=== PATIENT | male | born 1995 | race Caucasian/White ===

== ENCOUNTER → 2017-07-09 | Outpatient (CLI) | payer OTHER | LOC: FIMAGING 11:12 | PROVIDERS: ATTEND Family Medicine | DX: R07.81 Pleurodynia (principal) ==

== ENCOUNTER 2017-08-09 10:11 | Observation (INO) | payer OTHER ==
--- NOTE | 2017-08-09 10:18 | EDPHY ---
H & P Stated Complaint: n/v constipation generalized abd pain Time Seen by Provider: 08/09/17 10:17 HPI/ROS: HPI: This is a 22-year-old male who presents with Chief Complaint: n/v constipation generalized abd pain Location: Periumbilical Quality: Sharp pain Duration: Since 11:00 p.m. Signs and Symptoms: no fever, + nausea, + vomiting, no hematemesis, no blood in stool, no abdominal bloating, no diarrhea, no back pain, no urinary symptoms, no testicular/groin pain, no indigestion, no chest pain, no shortness of breath Timing: Acute, intermittent episodes Severity:10/28 Context: Patient is generally healthy, presents with complaints of sudden onset of nausea and vomiting up to 8 times starting around 11:00 p.m. Yesterday. He also complains of periumbilical abdominal pain that sharp, constant, nonradiating in nature. Last bowel movement was 2 days ago. Reports people at work have had the"stomach flu." Patient did smoke marijuana yesterday. Has not drink alcohol in 2-3 days. Patient ate [employer] for launch around noon yesterday; nothing since. Not able to keep any liquids or food down. Modifying Factors: None Comment: ROS: see HPI Constitutional: No fever, no chills, no weight loss Eyes: No blurred vision Respiratory: No shortness of breath, no cough Cardiovascular: No chest pain, no palpitations Gastrointestinal: + nausea, + vomiting, no diarrhea, no hematemesis, no blood in stool Genitourinary: No dysuria, no blood in urine Extremities: No myalgias, no edema Neurologic: No weakness, no numbness Skin: No rashes, no petechiae Hematologic: No bruising, no bleeding MEDICAL/SURGICAL/SOCIAL HISTORY: Medical history: Generally healthy. Does not take any regular medications. Surgical history: Denies Social history: Local [employer] student. Family history noncontributory. CONSTITUTIONAL: Well-developed, well-nourished, well-appearing young adult white male, awake and alert, no obvious distress HEENT: Atraumatic and normocephalic, PERRL, EOMI. Nares patent; no rhinorrhea; no nasal mucosal edema. Tympanic membranes clear. Oropharynx clear, no exudate and moist pink mucosa. Airway patent. No lymphadenopathy. No meningismus. Cardiovascular: Normal S1/S2, regular rate, regular rhythm, without murmur rub or gallop. PULMONARY/CHEST: Symmetrical and nontender. Clear to auscultation bilaterally. Good air movement. No accessory muscle usage. ABDOMEN: Soft, nondistended, mild periumbilical and right lower quadrant tenderness, no rebound, no guarding, no peritoneal signs, no masses or organomegaly. No CVAT. Negative House sign. EXTREMITIES: 2/2 pulses, strength 5/5, no deformities, no clubbing, no cyanosis or edema. NEUROLOGICAL: no focal neuro deficits. GCS 15. SKIN: Warm and dry, no erythema. no rash. Good capillary refill. Source: Patient Exam Limitations: No limitations - Personal History Current Tetanus/Diphtheria Vaccine: Yes - Medical/Surgical History Hx Asthma: No Hx Chronic Respiratory Disease: No Hx Diabetes: No Hx Cardiac Disease: No Hx Renal Disease: No Hx Cirrhosis: No Hx Alcoholism: No Hx HIV/AIDS: No Hx Splenectomy or Spleen Trauma: No Other PMH: denies - Social History Smoking Status: Never smoked Constitutional: Initial Vital Signs Temperature (C) 37.7 C 08/09/17 10:13 Heart Rate 54 L 08/09/17 10:13 Respiratory Rate 18 08/09/17 10:13 Blood Pressure 132/80 H 08/09/17 10:13 O2 Sat (%) 95 08/09/17 10:13 O2 Delivery Mode Room Air Allergies/Adverse Reactions: No Known Allergies Allergy (Unverified 08/09/17 10:13) Home Medications: Medication Instructions Recorded NK [No Known Home Meds] 08/09/17 Medical Decision Making - Diagnostics Imaging Results: Imaging Impressions Abdomen CT 08/09/17 10:23 Impression: Early appendicitis. Results called and discussed with Oneida Paul, at 08/09/2017 11:58 General information for patients regarding this examination can be found at [email or web address]. If you have questions or comments about this report, please contact me at [phone] (hospital) or [phone] (cell). ED Course/Re-evaluation: Vital signs reviewed and stable upon arrival. No systemic signs. Labs, IV fluids, IV medication, CT abdomen and pelvis scan ordered to evaluate for appendicitis. 1025: Given 1 L normal saline, IV promethazine 12.5 mg 1049: Labs reviewed; high normal white blood cell count with left shift, No signs of anemia/STEPHEN/elevated LFTs/electrolyte imbalance/pancreatitis. 1150: Called by radiologist, Dr. Hoyt, who reports early appendicitis. Appendix is measuring 13 mm within appendicolith Ordered IV ceftriaxone, IV Flagyl, IV morphine 4 mg in started normal saline at 100 cc an hour. NPO status. ED decision to consult General surgery. Spoke with Dr. Andujar who advised that he is on his way to the emergency room for consult and to take patient to the operating room for appendectomy. Spoke with patient regarding appendicitis diagnosis. Answered all of his questions at bedside. Pain is currently controlled at this time. This patient was seen under the supervision of my secondary supervising physician. I evaluated care for this patient independently. Discussed this patient with Dr. De Jesus who did not see the patient. Differential Diagnosis: Abdominal pain including but not limited to appendicitis, cholecystitis, gastritis and urinary tract infection. - Data Points Laboratory Results: Laboratory Results 08/09/17 10:25 08/09/17 10:25 08/09/17 08/09/17 10:25 10:25 WBC 11.83 10^3/uL H 10^3/uL (3.80-9.50) RBC 5.11 10^6/uL 10^6/uL (4.40-6.38) Hgb 15.5 g/dL g/dL (13.7-17.5) Hct 45.1 % % (40.0-51.0) MCV 88.3 fL fL (81.5-99.8) MCH 30.3 pg pg (27.9-34.1) MCHC 34.4 g/dL g/dL (32.4-36.7) RDW 12.7 % % (11.5-15.2) Plt Count 195 10^3/uL 10^3/uL (150-400) MPV 10.6 fL fL (8.7-11.7) Neut % (Auto) 87.1 % H % (39.3-74.2) Lymph % (Auto) 6.3 % L % (15.0-45.0) Evangeline % (Auto) 6.0 % % (4.5-13.0) Eos % (Auto) 0.1 % L % (0.6-7.6) Baso % (Auto) 0.2 % L % (0.3-1.7) Nucleat RBC Rel Count 0.0 % % (0.0-0.2) Absolute Neuts (auto) 10.31 10^3/uL H 10^3/uL (1.70-6.50) Absolute Lymphs (auto) 0.74 10^3/uL L 10^3/uL (1.00-3.00) Absolute Monos (auto) 0.71 10^3/uL 10^3/uL (0.30-0.80) Absolute Eos (auto) 0.01 10^3/uL L 10^3/uL (0.03-0.40) Absolute Basos (auto) 0.02 10^3/uL 10^3/uL (0.02-0.10) Absolute Nucleated RBC 0.00 10^3/uL 10^3/uL (0-0.01) Immature Gran % 0.3 % % (0.0-1.1) Immature Gran # 0.04 10^3/uL 10^3/uL (0.00-0.10) Sodium 142 mEq/L mEq/L (135-145) Potassium 4.4 mEq/L mEq/L (3.5-5.2) Chloride 100 mEq/L mEq/L (97-110) Carbon Dioxide 28 mEq/l mEq/l (22-31) Anion Gap 14 mEq/L mEq/L (8-16) BUN 16 mg/dL mg/dL (7-23) Creatinine 0.9 mg/dL mg/dL (0.7-1.3) Estimated GFR > 60 Glucose 147 mg/dL H mg/dL (70-100) Calcium 10.0 mg/dL mg/dL (8.5-10.4) Total Bilirubin 0.9 mg/dL mg/dL (0.1-1.4) Conjugated Bilirubin 0.4 mg/dL mg/dL (0.0-0.5) Unconjugated Bilirubin 0.5 mg/dL mg/dL (0.0-1.1) AST 41 IU/L IU/L (17-59) ALT 54 IU/L IU/L (21-72) Alkaline Phosphatase 70 IU/L IU/L (38-126) Total Protein 7.8 g/dL g/dL (6.3-8.2) Albumin 4.9 g/dL g/dL (3.5-5.0) Lipase 77 IU/L IU/L (23-300) Medications Given: Metronidazole/Sodium Chloride (Flagyl 500 Mg (Premix)) 100 mls @ 100 mls/hr IV EDNOW ONE PRN Reason: Protocol Stop: 08/09/17 13:01 Last Admin: 08/09/17 12:27 Dose: 100 mls Ondansetron HCl (Zofran) 4 mg IVP ONCE ONE Stop: 08/09/17 12:39 Last Admin: 08/09/17 12:39 Dose: 4 mg Discontinued Medications Sodium Chloride (Ns) 1,000 mls @ 0 mls/hr IV EDNOW ONE; Wide Open PRN Reason: Protocol Stop: 08/09/17 10:24 Last Admin: 08/09/17 10:30 Dose: 1,000 mls Sodium Chloride (Ns) 1,000 mls @ 0 mls/hr IV ONCE ONE; Wide Open PRN Reason: Protocol Stop: 08/09/17 12:03 Last Admin: 08/09/17 12:31 Dose: 1,000 mls Morphine Sulfate (Morphine) 4 mg IVP EDNOW ONE Stop: 08/09/17 12:02 Last Admin: 08/09/17 12:30 Dose: 4 mg Promethazine HCl (Phenergan) 12.5 mg IVP EDNOW ONE Stop: 08/09/17 10:24 Last Admin: 08/09/17 10:30 Dose: 12.5 mg Departure - Departure Disposition: [facility] Clinical Impression: Appendicitis, acute, with generalized peritonitis Condition: Fair
[2017-08-09] MEDS ORDERED: NS 1,000 ML IV ONE ×2 (10:23→12:02)
[2017-08-09] MEDS ORDERED: PROMETHAZINE HCL 25 MG/ML INJ IVP ONE (10:23)
[2017-08-09 10:32] LABS: PLATELET COUNT 195 10^3/uL (150-400)
[2017-08-09] MEDS ORDERED: IOPAMIDOL (ISOVUE-300) 100 ML BTL ONE (10:55)
[2017-08-09] MEDS ORDERED: cefTRIAXone 2 GM in STERILE WATER INJ 20 ML IV ONE (12:02)
[2017-08-09] MEDS ORDERED: ONDANSETRON 4 MG/2 ML VIAL ONE ×2 (12:33→13:31)
[2017-08-09] MEDS ORDERED: ONDANSETRON 4 MG/2 ML VIAL IVP ONE (12:38)
[2017-08-09] MEDS ORDERED: PROPOFOL 200 MG/20 ML VIAL ONE (13:30)
[2017-08-09] MEDS ORDERED: fentaNYL 100 MCG/2 ML INJ ONE (13:30)
[2017-08-09] MEDS ORDERED: KETOROLAC 30 MG/1 ML SDV ONE (13:31)
[2017-08-09] MEDS ORDERED: ROCURONIUM 100 MG/10 ML VIAL ONE (13:31)
[2017-08-09] MEDS ORDERED: LIDOCAINE 2% 5 ML SDV ONE (13:31)
[2017-08-09] MEDS ORDERED: DEXAMETHASONE 4 MG/ML VIAL ONE (13:31)
[2017-08-09] MEDS ORDERED: HEPARIN 5,000 UNIT/0.5 ML SYR ONE (13:32)
[2017-08-09] MEDS ORDERED: ceFAZolin 1 GM/5 ML SYR ONE (13:33)
[2017-08-09] MEDS ORDERED: MIDAZOLAM 2 MG/2 ML VIAL IVP ONE (13:45)
[2017-08-09] MEDS ORDERED: MIDAZOLAM 2 MG/2 ML VIAL ONE ×2 (13:45→14:34)
--- NOTE | 2017-08-09 13:47 | PDANEPAE ---
ANE History of Present Illness appy ANE Past Medical History - Cardiovascular History Hx Hypertension: No Hx Arrhythmias: No Hx Chest Pain: No Hx Coronary Artery / Peripheral Vascular Disease: No Hx CHF / Valvular Disease: No Hx Palpitations: No - Pulmonary History Hx COPD: No Hx Asthma/Reactive Airway Disease: No Hx Recent Upper Respiratory Infection: No Hx Oxygen in Use at Home: No Hx Sleep Apnea: No - Neurologic History Hx Cerebrovascular Accident: No Hx Seizures: No Hx Dementia: No - Endocrine History Hx Diabetes: No Hypothyroid: No Hyperthyroid: No - Renal History Hx Renal Disorders: No - Liver History Hx Hepatic Disorders: No - Neurological & Psychiatric Hx Hx Neurological and Psychiatric Disorders: No ANE Review of Systems Review of Systems: - Exercise capacity Exercise capacity: >=4 METS ANE Patient History - Allergies Allergies/Adverse Reactions: No Known Allergies Allergy (Unverified 08/09/17 10:13) - Home Medications Home Medications: NK [No Known Home Meds] 08/09/17 [Last Taken Unknown] - NPO status NPO Status: no food or drink >8 hours NPO Since - Liquids (Date): 08/09/17 NPO Since - Liquids (Time): 08:00 NPO Since - Solids (Date): 08/08/17 NPO Since - Solids (Time): 12:00 - Anes Hx Anes Hx: no prior problems - Smoking Hx Smoking Status: Never smoked ANE Labs/Vital Signs - Labs Result Diagrams: 08/09/17 10:25 08/09/17 10:25 - Vital Signs Blood Pressure: 142/75 Heart Rate: 45 Respiratory Rate: 18 O2 Sat (%): 95 Height: 172.72 cm Weight: 77.111 kg ANE Physical Exam - Airway Mallampati Score: Class 2 Mouth exam: normal dental/mouth exam, escudero - Pulmonary Pulmonary: no respiratory distress - Cardiovascular Cardiovascular: regular rate and rhythym - ASA Status ASA Status: I, E ANE Anesthesia Plan Anesthesia Plan: general endotracheal anesthesia
--- NOTE | 2017-08-09 13:50 | GHP ---
[f rep st] PREOP HISTORY AND PHYSICAL DATE OF ADMISSION: 08/09/2017 ADMITTING DIAGNOSIS: Acute appendicitis with mesenteric adenitis. HISTORY: The patient is a 22-year-old white male who had a steak burrito for lunch yesterday, and was not hungry for dinner. At 11 p.m. he had sudden onset of a sharp constant right lower quadrant pain, which has persisted since that time. He has vomited 10 times since the onset. He has not moved his bowels. He did not sleep last night. He is not hungry at this point. He came to the ER and a CT scan shows a distended appendix (13 mm). It is very narrow at its neck on the cecum. His white count was 11.8, with 87% neutrophils. I was asked to come see him to evaluate him for appendicitis. He had a recent upper respiratory tract infection, but has had diarrhea for 5 days in the last 2 weeks. There is no history of travel outside the country or antibiotic use in the last 6 months. He has had no prior abdominal surgery. He has no prior similar symptoms. There is no history of inflammatory bowel disease. SOCIAL HISTORY: He does not and never has smoked tobacco. He does smoke marijuana 3-4 times a day. He drinks approximately 6 pack a weekend. ALLERGIES: He has no known drug allergies. MEDICATIONS: He is not taking medications. PAST SURGICAL HISTORY: His only surgery has been ear tube placement and removal. There is no history of rheumatic fever, tuberculosis, hepatitis, transfusions. REVIEW OF SYSTEMS: He has had 2 concussions. Review of systems is otherwise quite negative. There are no limits on his activities. No history of steroid use. PHYSICAL EXAMINATION: GENERAL: He has a slight flush. He is, however, awake, alert and quite pleasant. SKULL: Normocephalic and atraumatic. VITAL SIGNS: Show blood pressure initially 132/80, temperature 37.1. Heart rate has been in the 50s. NECK: There is no cervical, supraclavicular, axillary, inguinal lymphadenopathy. Thyroid is not enlarged. Neck is otherwise unremarkable. BACK: Unremarkable. LUNGS: Clear to auscultation. CARDIAC: Shows S1, S2 to be normal, with no split of S2 without murmurs, rubs, or gallops. ABDOMEN: Slightly distended. He is tender with cough, 2 fingerbreadths below and 2 fingerbreadths lateral (right) to the umbilicus. He is tender at the level of 8/10. Bowel sounds are distinctly hypoactive. There is psoas and obturator signs are negative. To palpation, left upper quadrant is 1/10, left mid abdomen is 1, left lower quadrant is 1, epigastric region is 5, periumbilical area is 1, suprapubic area is 2, right upper quadrant is 1, right mid abdomen is 5, right lower quadrant is 8. The rest of the exam is absolutely unremarkable. Additional laboratories reveal his hematocrit is 45, his platelet count is 195. His glucose is 147. His creatinine is 0.9. His BUN is 16. We discussed the possibility of an antibiotic only approach in this case. He would like to proceed with a surgical approach. Certainly on CAT scan, there is mesenteric adenitis. He understands he may still have some tenderness after surgery. I feel he is set to proceed with surgical exploration. /[id number]/MODL MTDD
[2017-08-09] MEDS ORDERED: GLYCOPYRROLATE 0.2 MG/1 ML VIAL ONE (13:56)
[2017-08-09] MEDS ORDERED: SUGAMMADEX SODIUM 200 MG/2 ML VIAL IVP ONE (14:39)
[2017-08-09] MEDS ORDERED: fentaNYL 100 MCG/2 ML INJ IVP PRN (14:57)
[2017-08-09] MEDS ORDERED: MEPERIDINE 25 MG/ML SYR IVP PRN (14:57)
[2017-08-09] MEDS ORDERED: NALOXONE HCL 0.4 MG/ML INJ IVP PRN (14:57)
[2017-08-09] MEDS ORDERED: ALBUTEROL 3 ML DEYVIAL IH PRN (14:57)
[2017-08-09] MEDS ORDERED: PHENYLEPHRINE HCL 100 MCG/ML SYR IVP PRN (14:57)
[2017-08-09] MEDS ORDERED: LR 500 ML IV PRN (14:57)
[2017-08-09] MEDS ORDERED: ONDANSETRON 4 MG/2 ML VIAL IVP PRN ×2 (14:57→15:13)
[2017-08-09] MEDS ORDERED: HYDROmorphONE/DILAUDID 2 MG/ML INJ IVP PRN (14:57)
--- NOTE | 2017-08-09 14:57 | POSTANESTH ---
Post Anesthetic Evaluation Cardiovascular Status: Normal, Stable Respiratory Status: Normal, Stable Level of Consciousness/Mental Status: Can Participate in Eval Pain Control: Adequate, Prn Tx Ordered Nausea/Vomiting Control: Adequate, Prn Tx Ordered Complications Possibly Related to Anesthesia: None Noted
[2017-08-09] MEDS ORDERED: HYDROmorphone HCL/NS 0.5 MG/ML SYR IVP PRN (15:13)
--- NOTE | 2017-08-09 15:21 | POSTOPPROG ---
Post Op Note Date of Operation: 08/09/17 Surgeon: John Andujar Anesthesia: GET(General Endotracheal) Pre-op Diagnosis: acute appendicitis with mesenteric adenitis Post-op Diagnosis: acute unruptured appendicitis with mesenteric adenitis Indication: acute appendicitis with mesenteric adenitis Procedure: Laparoscopic appendectomy Findings: acute unruptured appendicitis with mesenteric adenitis Inf/Abcess present in the surg proc area at time of surgery?: No EBL: Minimal Total fluids administered: 900 Complications: none Specimen(s): appendix
[2017-08-09] MEDS ORDERED: LR 1,000 ML IV SCH (15:30)
--- NOTE | 2017-08-09 15:43 | ASMTCMCOM ---
CM Note CM Note Notes: Pt presented to the Emergency Department with a sudden onset of abdominal pain, constipation, nausea and vomiting. Pt diagnosed with acute appendicitis with mesenteric adenitis; s/p appendectomy. Pt is a student at . Per MD notes, pt drinks approximately one 6 pack per weekend and smokes marijuana 3-4 times/day. Resources may be helpful when pt is medically stable. Discharge needs remain unclear at this time. CM will continue to follow. Current Discharge Plan: To be determined Date Signed: 08/09/2017 03:42 PM Electronically Signed By:Mary Hand RN
--- NOTE | 2017-08-09 15:45 | GOP ---
[f rep st] OPERATIVE REPORT DATE OF OPERATION: 08/09/2017 SURGEON: John Andujar MD FACS ANESTHESIA: General endotracheal. PREOPERATIVE DIAGNOSIS: Acute appendicitis with mesenteric adenitis. POSTOPERATIVE DIAGNOSIS: Acute unruptured appendicitis with mesenteric adenitis. PROCEDURE PERFORMED: Laparoscopic appendectomy. FINDINGS: Acute unruptured appendicitis with mesenteric adenitis. SPECIMENS: Appendix. ESTIMATED BLOOD LOSS: Minimal. INDICATIONS: Acute appendicitis with mesenteric adenitis. DESCRIPTION OF PROCEDURE: The patient was placed on the operating table in supine position. After his abdomen was clipped, prepped and draped, a surgical time-out was carried out. The surgical team agreed to the time-out. A curvilinear incision was planned at the umbilicus. An oblique incision was planned in the left lower quadrant. A suprapubic incision was planned, as well. The skin was incised at all 3 sites. The incisions were deepened with Bovie electrocautery. Dissection was continued down to the anterior rectus sheath at the infraumbilical curvilinear incision. The anterior rectus fascia was elevated with Allis clamps on either side of the midline. Midline was incised. A pursestring of #0 PDS was placed. The peritoneum was entered. An 11-12 mm Bindu trocar was introduced. Intraabdominal insufflation was carried out to 15 mmHg at high flow. Two 5 mm ports were placed. There was no fluid in the pelvis. The appendix was easily identified. The mesoappendix was elevated with an Endo Allis clamp. The mesoappendix was then divided down to the appendiceal base using a harmonic scalpel and the appendix was cleared circumferentially. A single application of a 35 mm Endo-ANDREW stapler was used to resect the appendix. The specimen was removed in an EndoCatch bag. Pneumoperitoneum was re-established. Irrigation with heparin and Ancef-containing irrigant was carried out. The small bowel was run for a distance of 3 feet. Mesenteric adenitis was identified and photographed. There was no evidence of a Meckel's diverticulum. Ports were removed under direct vision. An inverted simple suture of #0 PDS was placed at the midpoint of the vertical midline hypogastric fascial incision. This was tied. The pursestring sutures were then tied. Subcutaneous tissue was well irrigated and checked for hemostasis. Hemostasis was excellent. All 3 skin incision were closed with inverted simple sutures of 4-0 Vicryl. Mastisol and Steri-Strips were placed. Band-Aids were positioned. The patient was transferred to Recovery in stable and satisfactory condition. FLUIDS ADMINISTERED: 900 mL. /[id number]/MODL MTDD
[2017-08-09] MEDS: ACETAMINOPHEN 500 MG TAB PO SCH (16:49)
[2017-08-09] MEDS: KETOROLAC 30 MG/1 ML SDV IVP SCH (18:08)
[2017-08-10] MEDS: ACETAMINOPHEN 500 MG TAB PO SCH ×2 (00:44→06:27)
[2017-08-10] MEDS: KETOROLAC 30 MG/1 ML SDV IVP SCH ×3 (00:44→12:31)
[2017-08-10 11:37] VITALS: BP 117/62
--- NOTE | 2017-08-10 13:44 | GDS ---
[f rep st] DISCHARGE SUMMARY DISCHARGE DIAGNOSIS: Acute appendicitis (nonruptured) with mesenteric adenitis. SURGERY PERFORMED: Laparoscopic appendectomy. CONDITION AT DISCHARGE: Improved/good. DISPOSITION: Home. DIET: Unrestricted, although I have suggested that he avoid constipating foods , such as bananas, rice, applesauce, and cheese. There are no limitations on the texture of his food. MEDICATIONS: He will take Tylenol 1000 mg every 8 hours until his pain resolves. He will take Toradol 10 mg every 6 hours until his pain resolves (#12 ). He will be given Dilaudid 2 mg (#5) and instructed to take it 1-2 every 4 hours p.r.n. severe pain but to call the office if he develops severe pain. ACTIVITIES: Lift less than 10 pounds for 3 weeks. He has notified his employer of this restriction. DISCHARGE INSTRUCTIONS: He is to shower only. He is to keep his Steri-Strips in place. He is to take a multivitamin with zinc 100% of the [employer] zinc copper and C daily. He is to watch for signs of infection, with superficial signs to be warmth, swelling, tenderness, and redness. He is to watch for deep space infections as manifested by fevers, chills, abdominal pain, and loss of appetite. He is to return to see Dr. Josef Iniguez, Dr. Karley Hernández, and Dr. Aram Beckett in approximately 2 weeks. HOSPITAL COURSE: He was admitted and taken to the operating room. Acute appendicitis with mesenteric adenitis was identified. His appendix was removed. He has done well postoperatively. He is eating a regular diet. He has no complaints. His incisions are clean and dry. /[id number]/MODL MTDD
== END 2017-08-10 13:01 | disposition home or self-care (01) ==
LOC: INTOOBSV 12:05 → F3N 15:51
PROVIDERS: ADMIT Surgery; ATTEND Surgery
PROC: 0DTJ4ZZ Resection of Appendix, Percutaneous Endoscopic Approach (ICD-10-PCS; principal; 2017-08-09 13:45)
DX: K35.80 Unspecified acute appendicitis (principal); I88.0 Nonspecific mesenteric lymphadenitis; E86.9 Volume depletion, unspecified
CPT/HCPCS: 44970; 74177; G0378; 96365; J0696; J1100; J1644; J1885; J2250; J2270; J2405; J2550; J2704; J3010; Q9967